=== PATIENT | male | born 1990 | race Caucasian/White ===

== ENCOUNTER 2016-05-12 19:30 | Emergency (ER) | payer MEDICAID ==
[2016-05-12] MEDS ORDERED: KETOROLAC 30 MG/ML VIAL ONE (20:48)
[2016-05-12] MEDS ORDERED: LEVOFLOXACIN 500 MG TAB ONE (20:48)
[2016-05-12] MEDS ORDERED: SODIUM CHLORIDE 0.9% 1,000 ML ONE (20:49)
[2016-05-12] MEDS ORDERED: MORPHINE 4 MG/ML SYR ONE (20:49)
[2016-05-12] MEDS ORDERED: ONDANSETRON 4 MG VIAL ONE (21:00)
== END 2016-05-12 21:34 | disposition home or self-care (01) ==
LOC: ER 19:30
CPT/HCPCS: 36415; 80053; 81001; 83690; 85025; 87088; 96361; 96374; 96375

== ENCOUNTER 2016-05-26 14:53 | Emergency (ER) | payer MEDICAID | END 2016-05-26 18:53 | disposition home or self-care (01) | LOC: ER 14:53 | DX: N30.01 Acute cystitis with hematuria (principal); R10.9 Unspecified abdominal pain; F17.210 Nicotine dependence, cigarettes, uncomplicated; Z79.899 Other long term (current) drug therapy; F32.9 Major depressive disorder, single episode, unspecified; F41.1 Generalized anxiety disorder; I10 Essential (primary) hypertension | CPT/HCPCS: 74176; 80053; 81001; 83690; 85025; 87088; 96361; 96365; 96375 ==

== ENCOUNTER → 2016-05-26 | Emergency (ER) | payer MEDICAID ==
[~2016-05-26] MED LIST: CEFTRIAXONE 1 GM VIAL ONE; MORPHINE 4 MG/ML SYR ONE; ONDANSETRON 4 MG VIAL ONE; SODIUM CHLORIDE 0.9% 1,000 ML ONE; SODIUM CHLORIDE 0.9% 100 ML IV ONE
== END ==
LOC: ER 01:51
DX: S67.192A Crushing injury of right middle finger, initial encounter (principal); W23.0XXA Caught, crushed, jammed, or pinched between moving objects, initial encounter; Y92.009 Unspecified place in unspecified non-institutional (private) residence as the place of occurrence of the external cause; Z79.899 Other long term (current) drug therapy; I10 Essential (primary) hypertension; F41.1 Generalized anxiety disorder; F17.210 Nicotine dependence, cigarettes, uncomplicated

== ENCOUNTER 2016-06-01 11:55 | Emergency (ER) | payer MEDICAID | END 2016-06-01 14:22 | disposition home or self-care (01) | LOC: ER 11:55 | DX: R10.31 Right lower quadrant pain (principal); R10.32 Left lower quadrant pain; Z87.891 Personal history of nicotine dependence; Z79.899 Other long term (current) drug therapy; F32.9 Major depressive disorder, single episode, unspecified; F41.1 Generalized anxiety disorder; F31.9 Bipolar disorder, unspecified | CPT/HCPCS: 36415; 80053; 81001; 83690; 85025; 87077; 87088; 87186 ==

== ENCOUNTER 2016-06-09 17:57 | Emergency (ER) | payer MEDICAID ==
[2016-06-09] MEDS ORDERED: AZITHROMYCIN 250 MG TAB ONE (20:45)
== END 2016-06-09 20:56 | disposition home or self-care (01) ==
LOC: ER 17:57
DX: A56.01 Chlamydial cystitis and urethritis (principal); R31.9 Hematuria, unspecified
CPT/HCPCS: 36415; 74022; 80053; 81001; 83690; 85025; 87088; 87491; 87591